=== PATIENT | male | born 1960 | race Caucasian/White ===

== ENCOUNTER → 2017-06-03 | Outpatient (CLI) | payer OTHER, BC ==
[~2017-06-03] MED LIST: ASPCH81X PO; ATOR-54 PO; GABA400C PO; GABA800T PO; OXYC1TAB3 PO; PROP40TA5 PO; VENL150C56 PO
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
== END | disposition home or self-care (01) ==
LOC: C.RAD1850 14:45
PROVIDERS: ATTEND Family Medicine Hospice and Palliative Medicine
DX: M25.511 Pain in right shoulder (principal)